=== PATIENT | female | born 1990 | race Caucasian/White ===

== ENCOUNTER 2023-04-08 10:46 | Inpatient (IN) | payer OTHER, SELFPAY ==
[2023-04-08] VITALS (154 sets, daily range): BP systolic 91–150; BP diastolic 43–114; PULSE 65–149; TEMP 36.6–36.8; O2SAT 79–100; BMI 28.8
[2023-04-08 11:47] LABS: Basophils Percent Auto 0.2 % (0.2-1.2); Eosinophils Absolute Auto 0.1 K/mm3 (0-0.3); Eosinophils Percent Auto 0.7 % (0-4.4); Hematocrit 34.6 % (37.0-47.0); Hemoglobin 11.8 g/dL (12.0-15.0); Immature Granulocyte Absolute 0.03 K/mm3 (0.00-0.031); Immature Granulocyte Percent A 0.3 % (0-0.5); Lymphocytes Absolute Auto 1.37 K/mm3 (0.9-3.2); Lymphocytes Percent Auto 13.6 % (18.3-44.2); Mean Corpuscular HGB Conc 34.1 g/dl (32-36); Mean Corpuscular Hemoglobin 30.8 pg (26-34); Mean Corpuscular Volume 90.3 fl (80-100); Mean Platelet Volume 11.2 fl (7.4-10.4); Monocytes Absolute Auto 0.7 K/mm3 (0.1-0.6); Neutrophils Absolute Auto 7.9 K/mm3 (1.3-6.7); Neutrophils Percent Auto 78.2 % (45.5-73.1); Platelet Count Result 194 k/mm3 (150-375); Red Blood Count 3.83 M/mm3 (4.2-5.4); Red Cell Distribution Width 12.6 % (11.5-14.5); White Blood Count 10.1 K/mm3 (4.5-10.0)
--- NOTE | 2023-04-08 11:48 | LDADM ---
This patient, Saida Barger, was admitted to Labor/Delivery/Recovery 105 on 04/08/23 at 10:46. Plans for labor, pain management and were discussed with patient. Patient/family oriented to hospital policies and general routines including ID bracelet, bed and alarms, visiting hours, pain management, procedures, bathroom and other care routines, personal items, smoking policy, room service/diet and guest tray routines, infant security routines, and visiting hours. Patient/Family are encouraged to report perceived risks to care and to ask questions if they do not understand what they are told or what they should do. See OBIX for further documentation.
[2023-04-08 11:57] LABS: Alanine Aminotransferase 19 U/L (6-35); Albumin Level 3.8 g/dL (3.5-5.1); Alkaline Phosphatase 111 U/L (38-126); Anion Gap 10 mmol/L (8-16); Aspartate Amino Transferase 25 U/L (14-36); Bilirubin,Total 0.5 mg/dL (0.2-1.3); Blood Urea Nitrogen 8 mg/dL (7-17); Calcium 9.4 mg/dL (8.4-10.2); Carbon Dioxide 20 mmol/L (22-30); Chloride 105 mmol/L (98-107); Estimated CRCL calculation 112 ml/min; Estimated Glomerular Filt Rate > 60; Glucose 108 mg/dL (65-110); Potassium 3.3 mmol/L (3.4-5.0); Sodium 135 mmol/L (137-145); Uric Acid 5.7 mg/dL (2.5-7.5)
[2023-04-08] MEDS: LACTATED RINGERS 1,000 ML 125 ML IV CONT ×4 (12:54→22:03)
[2023-04-08] MEDS: AMPICILLIN 2 GM/NS 100 ML 2 GM/100 ML BAG IVPB (12:54)
--- NOTE | 2023-04-08 13:30 | WPDHPUPDATE1 ---
History and Physical Update Update Date/Time: 04/08/23 13:30 33-year-old primiparous female at 36 weeks gestation presents with spontaneous rupture membranes. Start antibiotics and start Pitocin. Expectant management. Reassuring heart tones. History and Physical has been reviewed, including an updated exam of the patient. There are NO changes in the patient's condition. Risks, benefits, and alternatives have been discussed and questions answered. Patient agrees to proceed with procedure.
[2023-04-08] MEDS: OXYTOCIN 30 UNITS/NS 500 ML 30 UNITS/500 ML BAG IV CONT (14:12)
[2023-04-08 16:37] LABS: Rapid Plasma Reagin Non-Reactive (NonReactive)
--- NOTE | 2023-04-08 17:02 | WPDANESEPPF ---
Anes - Initial Pre Proc Eval Procedure: labor epidural Date/Time: 04/08/23 17:02 Surgeon: Sean Ramos MD Pre Op Diagnosis: labor pain Pre Op Diagnosis: Leaking Patient Data Age: 33 Gender: F Height: 1.52 m Weight: 67 kg Last Vital Signs Temp 36.8 C 04/08/23 14:00 Pulse 101 H 04/08/23 17:01 BP 133/90 04/08/23 17:01 O2 Del Method Room Air 04/08/23 11:31 Allergies Allergy/AdvReac Type Severity Reaction Status Date / Time No Known Allergies Allergy Verified 04/08/23 11:29 Home Medications Medication Instructions Recorded Confirmed Type Classic 1 tab-cap PO DAILY 04/01/23 04/01/23 History Laboratory Tests 04/08/23 04/08/23 11:39 11:40 WBC 10.1 H K/mm3 (4.5-10.0) RBC 3.83 L M/mm3 (4.2-5.4) Hgb 11.8 L g/dL (12.0-15.0) Hct 34.6 L % (37.0-47.0) MCV 90.3 fl (80-100) MCH 30.8 pg (26-34) MCHC 34.1 g/dl (32-36) RDW 12.6 % (11.5-14.5) Plt Count 194 k/mm3 (150-375) MPV 11.2 H fl (7.4-10.4) Immature Gran % (Auto) 0.3 % (0-0.5) Neut % (Auto) 78.2 H % (45.5-73.1) Lymph % (Auto) 13.6 L % (18.3-44.2) [place] % (Auto) 7.0 % (2.6-8.5) Eos % (Auto) 0.7 % (0-4.4) Baso % (Auto) 0.2 % (0.2-1.2) Lymph # (Auto) 1.37 K/mm3 (0.9-3.2) [place] # (Auto) 0.7 H K/mm3 (0.1-0.6) Eos # (Auto) 0.1 K/mm3 (0-0.3) Baso # (Auto) 0.0 K/mm3 (0.0-0.1) Abs Immat Gran (auto) 0.03 K/mm3 (0.00-0.031) Absolute Neuts (auto) 7.9 H K/mm3 (1.3-6.7) Absolute Nucleated RBC 0.0 K/mm3 (0.0-0.012) Nucleated RBC % 0.0 % (0.0-0.2) Sodium 135 L mmol/L (137-145) Potassium 3.3 L mmol/L (3.4-5.0) Chloride 105 mmol/L (98-107) Carbon Dioxide 20 L mmol/L (22-30) Anion Gap 10 mmol/L (8-16) BUN 8 mg/dL (7-17) Creatinine 0.50 L mg/dL (0.7-1.0) Estim Creat Clear Calc 112 ml/min Estimated GFR > 60 (59 - ) Glucose 108 mg/dL (65-110) Uric Acid 5.7 mg/dL (2.5-7.5) Calcium 9.4 mg/dL (8.4-10.2) Total Bilirubin 0.5 mg/dL (0.2-1.3) AST 25 U/L (14-36) ALT 19 U/L (6-35) Alkaline Phosphatase 111 U/L (38-126) Total Protein 7.0 g/dL (6.3-8.2) Albumin 3.8 g/dL (3.5-5.1) RPR Non-reactive (NonReactive) Blood Type A Positive Antibody Screen Negative Patient hx anesthesia problems: none Family hx anesthesia problems: none Results Review: All pre-operative results and documents have been reviewed as part of the pre-operative evaluation. [facility] Family History Family History (Updated 04/01/23 @ 13:43 by Ami Yousif RN) Father Diabetes mellitus Social History Social History Smoking status: Never smoker Second hand tobacco smoke exposure: No Substance use: never Lack of Transportation: No Lack of Food: Never True Current Housing: I Have Housing Concerned About Future Housing: No Difficulty Paying Gas/Electric Bills: No Difficulty Paying for Meds: No Currently Unemployed: No Education: Associate Degree Difficulty w/ Childcare or Family Care: No Spiritual care concerns: No Anes - Eval Final PreProcedure Day of Procedure 04/08/23 17:02 Patient weight: overweight ASA classification: II Anesthetic plan: proceed Anesthesia type and monitoring: regional epidural and standard monitoring Results Review: All pre-operative results and documents have been reviewed as part of the pre-operative evaluation. Informed Consent: The patient's anesthetic plan and its attendant risks and benefits were discussed with the patient/family/POA. Questions were solicited and answers provided to the satisfaction of the patient/family/POA.
[2023-04-08] MEDS: AMPICILLIN 1 GM/NS 50 ML 1 GM/50 ML BAG IVPB ×2 (18:08→21:52)
[2023-04-09] VITALS (93 sets, daily range): BP systolic 108–146; BP diastolic 60–105; PULSE 32–153; RESP 16; TEMP 36.6–37.2; O2SAT 83–100
[2023-04-09] MEDS: ONDANSETRON INJ 4 MG/2 ML VIAL IV PUSH (00:12)
--- NOTE | 2023-04-09 02:50 | PM.OBPRVD ---
OB - Vaginal Delivery Note Procedure Delivery date: 04/09/23 Induction method: None Delivery augmentation: Pitocin Delivery monitor: External FHT and External Uterine Route of delivery: Episiotomy description: None Laceration Description: Perineal - 1st Degree Delivery repair: vicryl Specimen: No Quantitative Blood Loss (ml): 200 Anesthesia type: Epidural Complications: No immediate complications Baby Date of : 04/09/23 Time of : 02:21 Weeks of gestation at delivery: 36 gender: Male score one minute: 8 score five minutes: 9
[2023-04-09] MEDS: OXYTOCIN 30 UNITS/NS 500 ML 30 UNITS/500 ML BAG 125 UNITS IV CONT (02:59)
[2023-04-09] MEDS: IBUPROFEN 600 MG TABLET PO ×3 (04:22→21:35)
[2023-04-09] MEDS: MULTIVIT/MIN/PREN/FOL AC/IRON TABLET 1 TAB PO (08:23)
--- NOTE | 2023-04-09 14:45 | PC.NURSE ---
Patient transferred to post room #284 via. Support person present. Oriented to unit, room, information board, rooming in, admission packet and security measures. Patient verbalizes understanding. Patient had delivered @ 0221 but was waiting on a room to open up. RN went over the welcome packet and mother requested a breast pump as she wishes to pump and bottle feed only.
[2023-04-09] MEDS: BENZOCAINE 20% AER SPR (*SP) 56 GM CAN 1 SPRAY TOPICAL (21:45)
[2023-04-09] MEDS: WITCH HAZEL 40 PADS 1 PAD TOPICAL (21:45)
[2023-04-10 04:00] VITALS: BP 134/89; PULSE 64; RESP 16; TEMP 36.6; O2SAT 98
[2023-04-10 04:12] LABS: Hematocrit 27.5 % (37.0-47.0); Hemoglobin 9.3 g/dL (12.0-15.0)
[2023-04-10 08:45] VITALS: BP 136/77; PULSE 69; RESP 16; TEMP 36.4; O2SAT 100
[2023-04-10] MEDS: POLYSACCHARIDE IRON COMPLEX 150 MG CAPSULE PO ×2 (08:49→16:44)
[2023-04-10] MEDS: MULTIVIT/MIN/PREN/FOL AC/IRON TABLET 1 TAB PO (08:49)
[2023-04-10] MEDS: DOCUSATE SODIUM 100 MG CAPSULE PO ×2 (08:49→16:44)
[2023-04-10] MEDS: IBUPROFEN 600 MG TABLET PO ×2 (08:50→20:30)
--- NOTE | 2023-04-10 11:19 | PM.OBPNVD ---
OB - PN: Subj Subjective Date/time seen: 04/10/23 11:19 Patient comments: no complaints, pain well controlled and tolerating diet OB - PN: Obj Data Labs 04/10/23 03:42 04/08/23 11:40 Labs: Laboratory Results - last 24 hr 04/10/23 03:42 Hgb 9.3 L Hct 27.5 L OB - PN A/P Plan day: 2 Plan: routine care and discharge home Time Spent With Patient Time: Total time spent is greater than 50% in coordination of care (as documented) at patient's floor/unit and/or counseling patient: Exam Const: General: comfortable and no acute distress Resp: Effort & Inspection: normal respiratory effort Auscultation: no rales, no rhonchi and no wheezes Cardio: Rate: regular rate Heart sounds: no click, no murmurs and no rubs GI: GI Palp: Yes Soft to palpation and No Tenderness to palpation present (GI) Auscultation: normal bowel sounds Extrem: General: normal to inspection, no pedal edema and no calf tenderness
--- NOTE | 2023-04-10 11:20 | P.DS_ITS ---
DS: Admitting Diagnosis Discharge Date April 12, 2023 Admitting Diagnosis term DS: Discharge Diagnosis Discharge Diagnosis (1) Post term , delivered: Code(s): O48.0 - Post-term Status: Acute OB - DS: Summary OB Procedures : None OB Procedures Intrapartum: Spontaneous Vag Delivery OB Procedures: : None Peripartum Data Laceration Description: Perineal - 1st Degree Episiotomy description: None Time Spent with Patient Time attestation: Total time spent providing and/or coordinating discharge services: DS: Data Data Completed and Pending Labs on day of discharge: Labs from last 24 hours 04/10/23 03:42 Hgb 9.3 L Hct 27.5 L Discharge Plan Discharge Discharging Clinician: Sean Ramos Patient Disposition: Home, Self-Care Activity: pelvic rest Diet: regular Patient Instructions: Antibiotic Form Stand Alone Forms: General Discharge Information Follow-up/Referrals: Sean Ramos MD [Physician] - Discharge Medications: Continued Classic 1 tab-cap PO DAILY Date of admission: 04/08/23 10:46 Primary Care Provider: PHYSICIAN,DIRECTOR OF QUALITY IMPROVEMENT Admitting Provider: Sean Ramos Attending physician on admission: Sean Ramos Condition: Stable
--- NOTE | 2023-04-10 11:32 | WPDANLDPN2 ---
Anes-Prog Note L&D Date/Time: 04/10/23 11:32 Comfortable throughout: labor and delivery Neuraxial method: epidural Epidural/Spinal procedure site: clean & non-tender Neuro status: Neuro function grossly intact. Cardiovascular status: normal Respiratory status: normal Airway patency: baseline Mental status: baseline Post-Op hydration status: normal Vital Signs: Last Vital Signs Temp 97.9 F 04/10/23 04:00 Pulse 64 04/10/23 04:00 Resp 16 04/10/23 04:00 BP 134/89 04/10/23 04:00 Pulse Ox 98 04/10/23 04:00 O2 Del Method Room Air 04/10/23 04:00 Pain score (VAS): 0 Post-procedural complaints: none Patient feedback: Patient satisfied with anesthetic care.
[2023-04-10 20:30] VITALS: BP 137/79; PULSE 75; RESP 16; TEMP 36.9; O2SAT 100
--- NOTE | 2023-04-11 05:28 | PC.NURSE ---
04/10/2023 at 2200 Patient viewed the discharge video Mother & Baby Care, The First Two Weeks . Patient was given the opportunity and encouraged to ask questions. Patient verbalized understanding of information shared and has been given the mother/baby guide for home reference.
[2023-04-11 07:50] VITALS: BP 141/81; PULSE 63; RESP 16; TEMP 37.3; O2SAT 100
[2023-04-11] MEDS: MULTIVIT/MIN/PREN/FOL AC/IRON TABLET 1 TAB PO (07:57)
[2023-04-11] MEDS: DOCUSATE SODIUM 100 MG CAPSULE PO (07:57)
[2023-04-11] MEDS: POLYSACCHARIDE IRON COMPLEX 150 MG CAPSULE PO (07:58)
[2023-04-11] MEDS: IBUPROFEN 600 MG TABLET PO (07:58)
--- NOTE | 2023-04-11 08:20 | PM.OBPNVD ---
OB - PN: Subj Subjective Date/time seen: 04/11/23 08:20 Interval history: elevated BP's - given precautions, t have short term follow up for bp check OB - PN: Obj Data Labs 04/10/23 03:42 04/08/23 11:40 OB - PN A/P Time Spent With Patient Time: Total time spent is greater than 50% in coordination of care (as documented) at patient's floor/unit and/or counseling patient:
== END 2023-04-11 12:01 | disposition home or self-care (01) | DRG 807 ==
LOC: ANHLDR 10:49 → ANHOB2 04-09 14:58
PROVIDERS: Advanced Practice Midwife; Admitting Provider Obstetrics & Gynecology; Visit Provider Obstetrics & Gynecology
DX: O60.14X0 Preterm labor third trimester with preterm delivery third trimester, not applicable or unspecified (principal); Z37.0 Single live birth; Z3A.36 36 weeks gestation of pregnancy; O63.1 Prolonged second stage (of labor); O70.0 First degree perineal laceration during delivery; R03.0 Elevated blood-pressure reading, without diagnosis of hypertension
CPT/HCPCS: 36415; 80053; 84550; 85014; 85018; 85025; 86592; 86850; 86900; 86901; A9270; J0290; J2405; J2590; J2795; J7120

== ENCOUNTER 2023-04-13 08:33 | Inpatient (IN) | payer OTHER, SELFPAY ==
[2023-04-13] VITALS (30 sets, daily range): BP systolic 109–191; BP diastolic 71–105; PULSE 55–97; RESP 18; TEMP 36.4
[2023-04-13 07:47] LABS: Basophils Percent Auto 0.3 % (0.2-1.2); Eosinophils Absolute Auto 0.2 K/mm3 (0-0.3); Eosinophils Percent Auto 1.6 % (0-4.4); Hematocrit 31.4 % (37.0-47.0); Hemoglobin 10.6 g/dL (12.0-15.0); Immature Granulocyte Absolute 0.08 K/mm3 (0.00-0.031); Immature Granulocyte Percent A 0.7 % (0-0.5); Lymphocytes Percent Auto 13.8 % (18.3-44.2); Mean Corpuscular HGB Conc 33.8 g/dl (32-36); Mean Corpuscular Hemoglobin 31.1 pg (26-34); Mean Corpuscular Volume 92.1 fl (80-100); Mean Platelet Volume 10.6 fl (7.4-10.4); Monocytes Absolute Auto 0.9 K/mm3 (0.1-0.6); Neutrophils Absolute Auto 8.8 K/mm3 (1.3-6.7); Neutrophils Percent Auto 75.6 % (45.5-73.1); Platelet Count Result 190 k/mm3 (150-375); Red Blood Count 3.41 M/mm3 (4.2-5.4); Red Cell Distribution Width 12.6 % (11.5-14.5); White Blood Count 11.6 K/mm3 (4.5-10.0)
[2023-04-13 07:57] LABS: Alanine Aminotransferase 107 U/L (6-35); Albumin Level 3.4 g/dL (3.5-5.1); Alkaline Phosphatase 87 U/L (38-126); Anion Gap 4 mmol/L (8-16); Aspartate Amino Transferase 81 U/L (14-36); Bilirubin,Total 0.4 mg/dL (0.2-1.3); Blood Urea Nitrogen 9 mg/dL (7-17); Calcium 8.6 mg/dL (8.4-10.2); Carbon Dioxide 27 mmol/L (22-30); Chloride 106 mmol/L (98-107); Estimated Glomerular Filt Rate > 60; Glucose 89 mg/dL (65-110); Potassium 3.3 mmol/L (3.4-5.0); Sodium 137 mmol/L (137-145); Uric Acid 6.2 mg/dL (2.5-7.5)
--- NOTE | 2023-04-13 08:00 | PM.IMHP ---
H&P: HPI History of Present Illness Date/Time: 04/13/23 08:00 Chief Complaint: Patient arrived with complaints of headache, not relieved with 500mg of Tylenol, and BP at home 170/100. Patient has some discomfort midchest, denies visual changes, and complains of bilateral swelling. Patient is PP and delivery on 04/09/23. Had some labial BPs throughout labor and pp period. and delivery uncomplicated. Medical history unremarkable. Review of Systems Review of Systems: All systems reviewed & are unremarkable except as noted in HPI and below [facility] Family History Family History (Updated 04/01/23 @ 13:43 by Ami Yousif RN) Father Diabetes mellitus Social History Social History Smoking status: Never smoker Second hand tobacco smoke exposure: No Substance use: never Lack of Transportation: No Lack of Food: Never True Current Housing: I Have Housing Concerned About Future Housing: No Difficulty Paying Gas/Electric Bills: No Difficulty Paying for Meds: No Currently Unemployed: No Education: Associate Degree Difficulty w/ Childcare or Family Care: No Spiritual care concerns: No Meds Home Medications and Allergies Home Medications Medication Instructions Recorded Confirmed Type Classic 1 tab-cap PO DAILY 04/01/23 04/01/23 History Allergies Allergy/AdvReac Type Severity Reaction Status Date / Time No Known Allergies Allergy Verified 04/08/23 11:29 Vital Signs Vital Signs - 24 hr 04/13/23 07:41 04/13/23 07:46 Pulse Rate 61 64 Blood Pressure 191/85 H 174/105 H Exam Const: General: cooperative and healthy appearing Resp: Effort & Inspection: normal respiratory effort Cardio: Rate: regular rate GI: Other: soft Extrem: Right lower extremity: edema Details: pitting and 1+ Left lower extremity: edema Details: pitting and 1+ Psych: Appearance: grossly normal H&P: Results Labs Labs: Short CBC 04/13/23 Range/Units 07:36 WBC 11.6 H (4.5-10.0) K/mm3 Hgb 10.6 L (12.0-15.0) g/dL Hct 31.4 L (37.0-47.0) % Plt Count 190 (150-375) k/mm3 BMP 04/13/23 07:36 Sodium 137 Potassium 3.3 L Chloride 106 Carbon Dioxide 27 BUN 9 Creatinine 0.70 Glucose 89 Calcium 8.6 Liver Function 04/13/23 Range/Units 07:36 Total Bilirubin 0.4 (0.2-1.3) mg/dL AST 81 H (14-36) U/L ALT 107 H (6-35) U/L Alkaline Phosphatase 87 (38-126) U/L Albumin 3.4 L (3.5-5.1) g/dL Assessment and Plan Assessment and plan (1) Pre-eclampsia in period: Code(s): O14.95 - Unspecified pre-eclampsia, complicating the puerperium Status: Acute Plan PP Day 4. Pre-Eclampsia with severe features Liver enzymes elevated. severe range BPs Headache Plan MgSO4 x 24hrs, IV labetalol Repeat labs in 12 hrs Comanage and Care with Dr. Ramos.
[2023-04-13] MEDS: LACTATED RINGERS 1,000 ML 75 ML IV CONT ×2 (08:09→21:40)
[2023-04-13] MEDS: MAGNESIUM SULF 4 GM/WATER100ML 4 GM/100 ML BAG IVPB (08:10)
[2023-04-13] MEDS: LABETALOL HCL INJ 100 MG/20 ML VIAL 20 MG IV PUSH (08:14)
[2023-04-13] MEDS: ACETAMINOPHEN/BUTALBITAL/CAFFEINE 325-50-40 MG TABLET (FIORICET) 1 TAB PO (08:19)
[2023-04-13] MEDS: MAGNESIUM SULF 20GM/WATER500ML 500 ML 50 MG IV CONT ×2 (08:45→18:44)
[2023-04-13] MEDS: LABETALOL HCL 100 MG TABLET 200 MG PO (16:48)
[2023-04-13 19:30] LABS: Basophils Absolute Auto 0.1 K/mm3 (0.0-0.1); Basophils Percent Auto 0.3 % (0.2-1.2); Eosinophils Absolute Auto 0.2 K/mm3 (0-0.3); Hematocrit 35.5 % (37.0-47.0); Immature Granulocyte Absolute 0.12 K/mm3 (0.00-0.031); Immature Granulocyte Percent A 0.8 % (0-0.5); Lymphocytes Absolute Auto 1.41 K/mm3 (0.9-3.2); Lymphocytes Percent Auto 9.8 % (18.3-44.2); Mean Corpuscular HGB Conc 33.8 g/dl (32-36); Mean Corpuscular Hemoglobin 30.8 pg (26-34); Mean Platelet Volume 10.4 fl (7.4-10.4); Monocytes Absolute Auto 0.8 K/mm3 (0.1-0.6); Monocytes Percent Auto 5.4 % (2.6-8.5); Neutrophils Absolute Auto 11.9 K/mm3 (1.3-6.7); Neutrophils Percent Auto 82.7 % (45.5-73.1); Platelet Count Result 227 k/mm3 (150-375); Red Cell Distribution Width 12.5 % (11.5-14.5); White Blood Count 14.4 K/mm3 (4.5-10.0)
[2023-04-13 19:50] LABS: Alanine Aminotransferase 114 U/L (6-35); Albumin Level 3.8 g/dL (3.5-5.1); Alkaline Phosphatase 104 U/L (38-126); Anion Gap 10 mmol/L (8-16); Aspartate Amino Transferase 75 U/L (14-36); Bilirubin,Total 0.4 mg/dL (0.2-1.3); Blood Urea Nitrogen 6 mg/dL (7-17); Calcium 6.5 mg/dL (8.4-10.2); Carbon Dioxide 24 mmol/L (22-30); Chloride 102 mmol/L (98-107); Estimated Glomerular Filt Rate > 60; Glucose 109 mg/dL (65-110); Potassium 2.9 mmol/L (3.4-5.0); Sodium 136 mmol/L (137-145)
[2023-04-14] VITALS (16 sets, daily range): BP systolic 132–157; BP diastolic 84–102; PULSE 76–102; RESP 18; TEMP 37
--- NOTE | 2023-04-14 01:27 | PC.NURSE ---
2007 on 04/13 talked to Ana Lilia Trevino CNM at this time. reported on maternal status as well as blood pressure and lab work. Orders recieved to redraw blood work in the morning 0730 and to stop the mag when 24 hours is finished.
[2023-04-14] MEDS: MAGNESIUM SULF 20GM/WATER500ML 500 ML 50 MG IV CONT (04:46)
[2023-04-14] MEDS: ACETAMINOPHEN/BUTALBITAL/CAFFEINE 325-50-40 MG TABLET (FIORICET) 1 TAB PO (07:48)
[2023-04-14 07:55] LABS: Basophils Percent Auto 0.2 % (0.2-1.2); Eosinophils Absolute Auto 0.2 K/mm3 (0-0.3); Eosinophils Percent Auto 1.3 % (0-4.4); Hematocrit 35.9 % (37.0-47.0); Hemoglobin 12.2 g/dL (12.0-15.0); Immature Granulocyte Absolute 0.07 K/mm3 (0.00-0.031); Immature Granulocyte Percent A 0.5 % (0-0.5); Lymphocytes Absolute Auto 1.39 K/mm3 (0.9-3.2); Lymphocytes Percent Auto 10.4 % (18.3-44.2); Mean Corpuscular Hemoglobin 31.1 pg (26-34); Mean Corpuscular Volume 91.6 fl (80-100); Mean Platelet Volume 10.4 fl (7.4-10.4); Monocytes Absolute Auto 0.9 K/mm3 (0.1-0.6); Monocytes Percent Auto 6.5 % (2.6-8.5); Neutrophils Absolute Auto 10.9 K/mm3 (1.3-6.7); Neutrophils Percent Auto 81.1 % (45.5-73.1); Platelet Count Result 238 k/mm3 (150-375); Red Blood Count 3.92 M/mm3 (4.2-5.4); Red Cell Distribution Width 12.6 % (11.5-14.5); White Blood Count 13.4 K/mm3 (4.5-10.0)
[2023-04-14 08:05] LABS: Alanine Aminotransferase 94 U/L (6-35); Albumin Level 3.4 g/dL (3.5-5.1); Alkaline Phosphatase 112 U/L (38-126); Anion Gap 4 mmol/L (8-16); Aspartate Amino Transferase 42 U/L (14-36); Bilirubin,Total 0.3 mg/dL (0.2-1.3); Blood Urea Nitrogen 5 mg/dL (7-17); Calcium 5.9 mg/dL (8.4-10.2); Carbon Dioxide 26 mmol/L (22-30); Chloride 105 mmol/L (98-107); Estimated Glomerular Filt Rate > 60; Glucose 100 mg/dL (65-110); Sodium 135 mmol/L (137-145)
--- NOTE | 2023-04-14 08:24 | PM.OBPNVD ---
OB - PN: Subj Subjective Date/time seen: 04/14/23 08:24 Interval history: Denies any headache, blurry vision, epigastric pain, no vaginal bleeding,, no pain OB - PN: Obj Data Labs 04/14/23 07:44 04/14/23 07:44 Labs: Laboratory Results - last 24 hr 04/13/23 04/13/23 04/13/23 15:32 18:49 18:50 WBC 14.4 H RBC 3.90 L Hgb 12.0 Hct 35.5 L MCV 91.0 MCH 30.8 MCHC 33.8 RDW 12.5 Plt Count 227 MPV 10.4 Immature Gran % (Auto) 0.8 H Neut % (Auto) 82.7 H Lymph % (Auto) 9.8 L [place] % (Auto) 5.4 Eos % (Auto) 1.0 Baso % (Auto) 0.3 Lymph # (Auto) 1.41 [place] # (Auto) 0.8 H Eos # (Auto) 0.2 Baso # (Auto) 0.1 Abs Immat Gran (auto) 0.12 H Absolute Neuts (auto) 11.9 H Absolute Nucleated RBC 0.0 Nucleated RBC % 0.0 Sodium 136 L Potassium 2.9 L Chloride 102 Carbon Dioxide 24 Anion Gap 10 BUN 6 L Creatinine 0.60 L Estim Creat Clear Calc Not Reportable Estimated GFR > 60 Glucose 109 Uric Acid 6.0 Calcium 6.5 L Magnesium 6.0 H Total Bilirubin 0.4 AST 75 H ALT 114 H Alkaline Phosphatase 104 Total Protein 7.0 Albumin 3.8 04/14/23 07:44 WBC 13.4 H RBC 3.92 L Hgb 12.2 Hct 35.9 L MCV 91.6 MCH 31.1 MCHC 34.0 RDW 12.6 Plt Count 238 MPV 10.4 Immature Gran % (Auto) 0.5 Neut % (Auto) 81.1 H Lymph % (Auto) 10.4 L [place] % (Auto) 6.5 Eos % (Auto) 1.3 Baso % (Auto) 0.2 Lymph # (Auto) 1.39 [place] # (Auto) 0.9 H Eos # (Auto) 0.2 Baso # (Auto) 0.0 Abs Immat Gran (auto) 0.07 H Absolute Neuts (auto) 10.9 H Absolute Nucleated RBC 0.0 Nucleated RBC % 0.0 Sodium 135 L Potassium 3.0 L Chloride 105 Carbon Dioxide 26 Anion Gap 4 L BUN 5 L Creatinine 0.60 L Estim Creat Clear Calc Not Reportable Estimated GFR > 60 Glucose 100 Uric Acid Calcium 5.9 L Magnesium Total Bilirubin 0.3 AST 42 H ALT 94 H Alkaline Phosphatase 112 Total Protein 6.0 L Albumin 3.4 L OB - PN A/P Assessment and Plan (1) Pre-eclampsia in period: Code(s): O14.95 - Unspecified pre-eclampsia, complicating the puerperium Status: Acute Plan 33-year-old female with preeclampsia on day 5. She has received magnesium sulfate for 24 hours. Going to discontinue magnesium sulfate and observe blood pressures. They have been stable over many hours. Labs are normal. To consider anti hypertensives and discharged. Time Spent With Patient Time: Total time spent is greater than 50% in coordination of care (as documented) at patient's floor/unit and/or counseling patient: Exam Const: General: cooperative, healthy appearing, comfortable and no acute distress Orientation/consciousness: oriented to person, oriented to place and oriented to time HENMT: Head: normal to inspection Ears: external ears normal Face/Nose/Sinus: Normal external nose present and normal facial exam Face and sinus: normal facial exam Eyes: General: appearance normal, both eyes and all related structures Neck: Neck: normal visual inspection, trachea midline and supple Resp: Auscultation: clear to auscultation bilaterally, no crackles, no rales, no rhonchi and no wheezes Cardio: Rate: regular rate Rhythm: regular rhythm Heart sounds: no click, no murmurs and no rubs GI: GI Palp: No abdominal tenderness, No Soft to palpation, No Tenderness to palpation present (GI) and No Palpable mass present Auscultation: normal bowel sounds Skin: General skin exam: normal color and no rashes or lesions noted Neuro: General: oriented to person, oriented to place and oriented to time Extrem: General: normal to inspection, no joint enlargement, no clubbing, cyanosis or edema, no pedal edema and no calf tenderness Psych: Appearance: grossly normal Mental Status: mental status grossly normal Speech and movement: Normal speech and movement present
--- NOTE | 2023-04-14 08:28 | PC.NURSE ---
Magnesium Sulfate DC'd at this time and report lab results to Dr. Ramos. Orders to redraw labs at 1600 and continue to monitor BP's throughout the day.
[2023-04-14] MEDS: LABETALOL HCL 100 MG TABLET 200 MG PO (09:09)
[2023-04-14 16:10] LABS: Hematocrit 33.6 % (37.0-47.0); Hemoglobin 11.3 g/dL (12.0-15.0); Mean Corpuscular HGB Conc 33.6 g/dl (32-36); Mean Corpuscular Hemoglobin 30.6 pg (26-34); Mean Corpuscular Volume 91.1 fl (80-100); Mean Platelet Volume 10.3 fl (7.4-10.4); Platelet Count Result 265 k/mm3 (150-375); Red Blood Count 3.69 M/mm3 (4.2-5.4); Red Cell Distribution Width 12.8 % (11.5-14.5)
[2023-04-14 16:19] LABS: Alanine Aminotransferase 78 U/L (6-35); Albumin Level 3.4 g/dL (3.5-5.1); Alkaline Phosphatase 91 U/L (38-126); Anion Gap 4 mmol/L (8-16); Aspartate Amino Transferase 33 U/L (14-36); Bilirubin,Total 0.4 mg/dL (0.2-1.3); Blood Urea Nitrogen 9 mg/dL (7-17); Calcium 6.4 mg/dL (8.4-10.2); Carbon Dioxide 27 mmol/L (22-30); Chloride 102 mmol/L (98-107); Estimated Glomerular Filt Rate > 60; Glucose 93 mg/dL (65-110); Potassium 3.2 mmol/L (3.4-5.0); Sodium 133 mmol/L (137-145)
--- NOTE | 2023-05-08 12:43 | PM.DS ---
DS: Admitting Diagnosis Discharge Date 04/14/23 Admitting Diagnosis preeclampsia DS: Discharge Diagnosis Discharge Diagnosis (1) Pre-eclampsia in period: Code(s): O14.95 - Unspecified pre-eclampsia, complicating the puerperium Status: Acute DS: Summary Hospital Course Hospital Course: 33-year-old female in the . Who presented with preeclampsia. She presented to the clinic. She was admitted. She was observed for 24 hours. She had magnesium sulfate. She was diuresing. She had normalization of her blood pressures. She was discharged home after a short stay in the hospital. She was discharged home on oral labetalol. Oral IP antihypertensives were used in her hospital stay. Time Spent with Patient Time attestation: Total time spent providing and/or coordinating discharge services: Discharge Plan Discharge Consulting providers: Ary Trevino Discharging Clinician: Sean Ramos Patient Disposition: Home, Self-Care Activity: as tolerated Diet: as tolerated and regular Discharge Instructions: Continue to follow post- discharge instructions. Refer to preeclampsia handout and return to hospital if any symptoms occur. Return to [facility]or[facility] office Tuesday for blood pressure check. Continue taking labetalol 200mg by mouth every 12 hours. Stand Alone Forms: General Discharge Information Follow-up/Referrals: Sean Ramos MD [Physician] - (Return to office on Tuesday for blood pressure check) Discharge Medications: New labetalol 100 mg Tablet 200 mg PO Q12HR 14 Days Qty: 56 0RF Continued Classic 1 tab-cap PO DAILY No Action nifedipine [Procardia XL] 30 mg tablet extended release 24hr 30 mg PO DAILY Qty: 30 0RF Date of admission: 04/13/23 08:33 Primary Care Provider: PHYSICIAN,FIREWALL ENGINEER Admitting Provider: Sean Ramos Attending physician on admission: Sean Ramos Condition: Stable
== END 2023-04-14 17:40 | disposition home or self-care (01) | DRG 776 ==
LOC: ANHOBOP 09:01 → ANHOBPP 09:01
PROVIDERS: Advanced Practice Midwife; Admitting Provider Obstetrics & Gynecology; Visit Provider Obstetrics & Gynecology
DX: O14.95 Unspecified pre-eclampsia, complicating the puerperium (principal)
CPT/HCPCS: 36415; 80053; 83735; 84550; 85025; 85027; A9270; J3475; J7120

== ENCOUNTER 2023-04-16 03:32 | Emergency (ER) | payer OTHER, SELFPAY ==
[2023-04-16] VITALS (7 sets, daily range): BP systolic 132–176; BP diastolic 69–100; PULSE 52–84; RESP 14–23; TEMP 37; O2SAT 98–100
--- NOTE | ~2023-04-16 | XR_ITS ---
XR chest 1V portable 04/16/2023 04:35 Indication: Hypertension Procedure: AP portable chest Comparison: No prior studies for comparison. Findings: Heart size normal. No focal air space disease, pulmonary edema, pleural effusion or suspect ed pneumothorax. Impression: 1: No acute cardiopulmonary disease. Reviewed, dictated and finalized at location A. STITCH CUP SETTER Impression: 1: No acute cardiopulmonary disease.
--- NOTE | 2023-04-16 03:43 | ECG_ITS ---
Measurements Intervals [place] Rate: 66 P: 30 MS: 125 QRS: 36 QRSD: 71 T: 42 QT: 418 QTc: 438 Interpretive Statements SINUS RHYTHM NORMAL ELECTROCARDIOGRAM NO PREVIOUS ECG AVAILABLE FOR COMPARISON Electronically Signed On 04-16-2023 7:44:25 [employer] GL[employer] SPECIALIST by Edd Harman M.D.
--- NOTE | 2023-04-16 03:52 | ED.GENADULT ---
HPI - General Adult General Chief complaint: Unspecified Stated complaint: high blood pressure Time Seen by Provider: 04/16/23 03:51 History of Present Illness HPI narrative: patient is a 3-year-old female who presents emerged from the 2 point of headache and hypertension. The patient has recent delivery and had developed a preeclampsia patient was admitted did magnesium for 24 hours and was discharged on the patient is currently taking labetalol patient went to bed the night and woke up Valentin night having headache and her pressure was 199 Related Data Home Medications Medication Instructions Recorded Confirmed Classic 1 tab-cap PO DAILY 04/01/23 04/01/23 Allergies Allergy/AdvReac Type Severity Reaction Status Date / Time No Known Allergies Allergy Verified 04/16/23 03:42 Review of Systems Review of Systems: A 10 system review of systems was completed on the patient and is negative except for what is stated in the HPI. Nursing and ancillary documentation was reviewed. [facility] Family History Family History Father Diabetes mellitus Social History Social History Smoking status: Never smoker Second hand tobacco smoke exposure: No Substance use: never Lack of Transportation: No Lack of Food: Never True Current Housing: I Have Housing Concerned About Future Housing: No Difficulty Paying Gas/Electric Bills: No Difficulty Paying for Meds: No Currently Unemployed: No Education: Associate Degree Difficulty w/ Childcare or Family Care: No Spiritual care concerns: No Exam Narrative: GENERAL: Well-appearing, well-nourished, and in no acute distress. HEAD: Normocephalic, atraumatic. EYES: PERRLA and EOMI. ENT: Nares clear, no rhinorrhea or epistaxis. Mucous membranes moist. NECK: Supple. CHEST: Clear to auscultation. No respiratory distress. HEART: Regular rate and rhythm. No murmur heard. Normal peripheral pulses. ABDOMEN: Soft, nontender, nondistended, normal active bowel sounds. EXTREMITIES: Normal range of motion. No edema. SKIN: Warm, dry, no rash. NEURO: No focal deficits. Alert and oriented x3. PSYCH: Normal mood and affect. Course Vital Signs Vital signs: Vital Signs Temperature 37.0 C 04/16/23 03:35 Pulse Rate 52 L 12/16/23 03:35 Respiratory Rate 18 04/16/23 03:35 Blood Pressure 175/82 H 04/16/23 03:35 Pulse Oximetry 100 04/16/23 03:35 Oxygen Delivery Room Air 04/16/23 03:35 Temperature 37.0 C 04/16/23 03:35 Pulse Rate 64 04/16/23 04:45 Respiratory Rate 21 H 04/16/23 04:45 Blood Pressure 132/69 04/16/23 04:45 Pulse Oximetry 99 04/16/23 04:45 Oxygen Delivery Room Air 04/16/23 03:35 Medical Decision Making MDM Narrative Medical decision making narrative: differential diagnosis includes hypertension, preeclampsia, electrolyte abnormality laboratory studies were obtained on the patient which showed a urinalysis with no protein in the urine electrolytes were obtained which showed improved liver enzymes from a previous admission. Chest x-ray showed no focal findings EKG showed no acute ischemic changes the patient was given a single dose of hydralazine in the emergency department and blood pressure has come down nicely. Patient is feeling much better case was discussed with the on-call OB for the patient's primary Ob the patient will be started on Procardia 30 mg daily Vital Signs Vital Signs: Vital Signs Temperature 37.0 C 04/16/23 03:35 Pulse Rate 52 L 04/16/23 03:35 Respiratory Rate 18 04/16/23 03:35 Blood Pressure 175/82 H 04/16/23 03:35 Pulse Oximetry 100 04/16/23 03:35 Oxygen Delivery Room Air 04/16/23 03:35 Temperature 37.0 C 04/16/23 03:35 Pulse Rate 64 04/16/23 04:45 Respiratory Rate 21 H
[2023-04-16] MEDS: SODIUM CHLORIDE 0.9% IV 1,000 ML 999 ML IV CONT (04:08)
[2023-04-16] MEDS: hydrALAZINE HCL 20 MG/ML VIAL 10 MG IV PUSH (04:08)
[2023-04-16 04:25] LABS: Basophils Absolute Auto 0.1 K/mm3 (0.0-0.1); Basophils Percent Auto 0.5 % (0.2-1.2); Eosinophils Absolute Auto 0.3 K/mm3 (0-0.3); Eosinophils Percent Auto 3.1 % (0-4.4); Hematocrit 33.2 % (37.0-47.0); Immature Granulocyte Absolute 0.06 K/mm3 (0.00-0.031); Immature Granulocyte Percent A 0.5 % (0-0.5); Lymphocytes Percent Auto 20.9 % (18.3-44.2); Mean Corpuscular HGB Conc 33.1 g/dl (32-36); Mean Corpuscular Hemoglobin 30.6 pg (26-34); Mean Corpuscular Volume 92.2 fl (80-100); Mean Platelet Volume 10.4 fl (7.4-10.4); Monocytes Percent Auto 9.5 % (2.6-8.5); Neutrophils Absolute Auto 7.2 K/mm3 (1.3-6.7); Neutrophils Percent Auto 65.5 % (45.5-73.1); Platelet Count Result 283 k/mm3 (150-375); Red Cell Distribution Width 12.5 % (11.5-14.5)
[2023-04-16 04:32] LABS: Appearance Urine Clear (Clear); Bacteria Urine None Seen /hpf; Bilirubin Urine Negative (Negative); Blood Urine 2+ (Negative); Color Urine Yellow (Yellow); Glucose Urine UA Negative (Negative); Ketones Urine Negative (Negative); Leukocyte Esterase Ur Trace LEU/UL (Negative); Nitrate Urine Negative (Negative); Non Pathogenic Casts 0-2; Protein Urine Negative (Negative); RBC Urine 0-2 /hpf (0-2); Specific Grav Ur 1.002 (1.001-1.035); Squamous Epithelial Cell Urine None seen /hpf (Few); Urobilinogen Urine 0.2 mg/dL (<2.0); WBC Urine 0-5 /hpf; pH Urine 7.5 (5.0-9.0)
[2023-04-16 04:37] LABS: Add Urine Microscopic? YES
[2023-04-16 04:37] LABS: Alanine Aminotransferase 55 U/L (6-35); Albumin Level 3.7 g/dL (3.5-5.1); Alkaline Phosphatase 81 U/L (38-126); Anion Gap 7 mmol/L (8-16); Aspartate Amino Transferase 27 U/L (14-36); Bilirubin,Total 0.3 mg/dL (0.2-1.3); Blood Urea Nitrogen 16 mg/dL (7-17); Calcium 8.8 mg/dL (8.4-10.2); Carbon Dioxide 26 mmol/L (22-30); Chloride 105 mmol/L (98-107); Estimated CRCL calculation 80 ml/min; Estimated Glomerular Filt Rate > 60; Glucose 97 mg/dL (65-110); Potassium 3.7 mmol/L (3.4-5.0); Sodium 138 mmol/L (137-145)
[2023-04-16 04:47] LABS: Troponin I < 0.012 ng/mL (0.000-0.034)
[2023-04-16 04:57] LABS: INR 0.9
[2023-04-16 04:58] LABS: Partial Thromboplastin Time 28.8 SECONDS (22.3-36.8)
[2023-04-16] MEDS: NIFEdipine 30 MG TAB.ER.24 PO (05:24)
== END 2023-04-16 05:27 | disposition home or self-care (01) ==
PROVIDERS: Emergency Provider Emergency Medicine
DX: O13.5 Gestational [pregnancy-induced] hypertension without significant proteinuria, complicating the puerperium (principal)
CPT/HCPCS: 36415; 71045; 80053; 81001; 84484; 85025; 85610; 85730; 93005; 96361; 96374; 99284; A9270; J0360; J7030